=== PATIENT | male | born 1935 | race Caucasian/White ===

== ENCOUNTER 2018-01-16 06:59 | Emergency (ER) | payer MEDICARE ==
[~2018-01-16 06:59] MED LIST: AMIO100T4 PO; APIX5TAB PO; ASPI-555 PO; DOCU100C33 PO; KRIL1CAP2 PO; LEVO50 PO; MELA10TA2 PO; SAW/1TAB2 PO; SIMV10TA6 PO; TERA5CAP4 PO; VALS80TA30 PO
== END 2018-01-16 07:55 | disposition home or self-care (01) ==
LOC: EDH 06:59
DX: R04.0 Epistaxis (principal); I10 Essential (primary) hypertension; Z88.6 Allergy status to analgesic agent; Z88.8 Allergy status to other drugs, medicaments and biological substances
CPT/HCPCS: 99281

== ENCOUNTER → 2018-02-08 | Outpatient (CLI) | payer MEDICARE | END | disposition home or self-care (01) | LOC: RAH 12:57 | PROVIDERS: ATTEND Psychiatry & Neurology Neurology | DX: G91.2 (Idiopathic) normal pressure hydrocephalus (principal) | CPT/HCPCS: 70450 ==

== ENCOUNTER 2019-07-23 04:49 | Emergency (ER) | payer MEDICARE ==
[~2019-07-23 04:49] MED LIST changes: -AMIO100T4 PO; +AMIO200T6 PO; -APIX5TAB PO; -ASPI-555 PO; +ASPI-556 PO; +CARB1TAB20 PO; -DOCU100C33 PO; -KRIL1CAP2 PO; +LOSA50TA64 PO; -MELA10TA2 PO; +METO25TA6 PO; +POLY17PO4 PO; -SAW/1TAB2 PO; -SIMV10TA6 PO; +SIMV10TA97 PO; +TYLENOL PM PO; -VALS80TA30 PO; +VITA1TAB22 PO
[2019-07-23] MEDS ORDERED: ORPHENADRINE CITRATE 30 MG/ML ML ONE (06:02)
[2019-07-23] MEDS ORDERED: LIDOCAINE 5% TOPICAL PATCH TP ONE (06:02)
[2019-07-23] MEDS ORDERED: HYDROCODONE/ACETAMINOPHEN 5/325 MG TAB ONE (06:03)
== END 2019-07-23 07:34 | disposition home or self-care (01) ==
LOC: EDH 04:49
DX: M54.6 Pain in thoracic spine (principal); M62.838 Other muscle spasm; I10 Essential (primary) hypertension; Z88.6 Allergy status to analgesic agent; Z88.1 Allergy status to other antibiotic agents
CPT/HCPCS: 72072; 96372; 99283; J2360

== ENCOUNTER 2021-10-05 09:46 | Emergency (ER) | payer MEDICARE ==
[~2021-10-05] VITALS: Ht 180.3 cm; Wt 68.5 kg
[~2021-10-05 09:46] MED LIST changes: -AMIO200T6 PO; +AMIO200T68 PO; -CARB1TAB20 PO; +CARB1TAB35 PO
[2021-10-05 10:01] LABS: BASOPHILS % (AUTO) 0.3 % (0.0-5.0); EOSINOPHILS % (AUTO) 1.4 % (0.0-8.0); HEMATOCRIT 38.8 % (42-54); LYMPHOCYTES % (AUTO) 13.6 % (21.0-51.0); MEAN CORPUSCULAR HGB CONC 33.8 g/dL (32.0-36.0); MEAN CORPUSCULAR VOLUME 94.6 fL (79-99); MONOCYTES % (AUTO) 8.1 % (3.0-13.0); NEUTROPHILS % (AUTO) 76.3 % (40.0-77.0); PLATELET COUNT (AUTO) 188 K/uL (130-400); RED CELL DISTRIBUTION WIDTH 12.2 % (11.0-15.5)
[2021-10-05 10:07] LABS: CREATININE 1.3 mg/dL (0.5-1.5); POTASSIUM 4.1 mmol/L (3.5-5.1)
[2021-10-05 10:12] LABS: ALBUMIN 3.9 g/dL (3.5-5.0); TOTAL PROTEIN, SERUM 7.1 g/dL (6.0-8.3)
[2021-10-05] MEDS: ACETAMINOPHEN 500 MG TABLET PO ONE (10:23)
[2021-10-05] MEDS: ACETAMINOPHEN 500 MG TABLET ONE (10:23)
[2021-10-05 11:00] VITALS: BP 119/68
== END 2021-10-05 11:56 | disposition home or self-care (01) ==
LOC: EDH 09:46
DX: R55 Syncope and collapse (principal); R42 Dizziness and giddiness; I10 Essential (primary) hypertension; E78.00 Pure hypercholesterolemia, unspecified; G20 Parkinson's disease; Z88.5 Allergy status to narcotic agent; Z79.82 Long term (current) use of aspirin; Z95.810 Presence of automatic (implantable) cardiac defibrillator
CPT/HCPCS: 36415; 71045; 80053; 84484; 85025; 93005

== ENCOUNTER → 2023-02-12 | Outpatient (CLI) | payer MEDICARE ==
[2023-02-12 12:15] LABS: BASOPHILS # (AUTO) 0.03 K/uL (0.00-0.20); BASOPHILS % (AUTO) 0.3 % (0.0-5.0); EOSINOPHILS # (AUTO) 0.11 K/uL (0.00-0.70); EOSINOPHILS % (AUTO) 1.1 % (0.0-8.0); HEMATOCRIT 38.8 % (42-54); IMMATURE GRANULOCYTE ABSOLUTE 0.02 K/uL (0-1); LYMPHOCYTES # (AUTO) 1.6 K/uL (1.0-4.8); LYMPHOCYTES % (AUTO) 14.9 % (21.0-51.0); MEAN CORPUSCULAR HEMOGLOBIN 32.4 pg (27.0-33.0); MEAN CORPUSCULAR HGB CONC 33.2 g/dL (32.0-36.0); MEAN CORPUSCULAR VOLUME 97.5 fL (79-99); MONOCYTES # (AUTO) 0.9 K/uL (0.1-1.0); MONOCYTES % (AUTO) 8.8 % (3.0-13.0); NEUTROPHILS # (AUTO) 7.8 K/uL (1.8-7.7); NEUTROPHILS % (AUTO) 74.7 % (40.0-77.0); PLATELET COUNT (AUTO) 191 K/uL (130-400); RED BLOOD CELL COUNT(AUTO) 3.98 MIL/uL (4.50-6.20); RED CELL DISTRIBUTION WIDTH 12.3 % (11.0-15.5); WHITE BLOOD COUNT (AUTO) 10.4 K/uL (4.8-10.8)
== END | disposition home or self-care (01) ==
LOC: LAB 10:53
PROVIDERS: ATTEND Internal Medicine Cardiovascular Disease
DX: I10 Essential (primary) hypertension (principal)
CPT/HCPCS: 36415; 85025

== ENCOUNTER → 2023-04-16 | Outpatient (CLI) | payer MEDICARE | END | disposition home or self-care (01) | LOC: RAH 13:12 | PROVIDERS: ATTEND Internal Medicine | DX: R13.10 Dysphagia, unspecified (principal); R12 Heartburn | CPT/HCPCS: 74230; 92611 ==

== ENCOUNTER 2023-05-19 05:44 | Day surgery (SDC) | payer MEDICARE ==
[~2023-05-19] VITALS: Ht 177.8 cm; Wt 72.1 kg
[2023-05-19] VITALS (9 sets, daily range): BP systolic 142–176; BP diastolic 73–96; PULSE 62–80; RESP 16–20
[~2023-05-19 05:44] MED LIST changes: -AMIO200T68 PO; -ASPI-556 PO; -LEVO50 PO; -LOSA50TA64 PO; -POLY17PO4 PO; -SIMV10TA97 PO; -TYLENOL PM PO
[2023-05-19] MEDS ORDERED: OMEP20CA12 PO (06:14)
[2023-05-19] MEDS ORDERED: CHOL-4 PO (06:14)
[2023-05-19] MEDS ORDERED: ROPI0.2535 PO (06:15)
[2023-05-19] MEDS ORDERED: SOLI5TAB6 PO (06:15)
[2023-05-19] MEDS ORDERED: ATOR10 PO (06:18)
[2023-05-19] MEDS ORDERED: FAMO40TA7 PO (06:18)
[2023-05-19] MEDS ORDERED: APIX5TAB PO (06:18)
[2023-05-19] MEDS ORDERED: LEVO25CA4 PO (06:18)
[2023-05-19] MEDS ORDERED: LOSA25TA41 PO (06:18)
[2023-05-19] MEDS ORDERED: DUTA0.5C37 PO (06:18)
[2023-05-19] MEDS: 0.9%NACL 1000ML 1,000 ML IV ONE (06:54)
[2023-05-19] MEDS ORDERED: PHENYLEPHRINE HCL 10 MG/ML 1ML VIAL IV ONE (07:00)
[2023-05-19] MEDS ORDERED: LIDOCAINE HCL 400MG/20ML VIAL ONE (07:00)
[2023-05-19] MEDS ORDERED: PROPOFOL 10 MG/ML 20ML VIAL IV ONE (07:00)
[2023-05-19] MEDS: HYDRALAZINE 20MG/ML VIAL ONE (07:51)
== END 2023-05-19 08:26 | disposition home or self-care (01) ==
LOC: ENDO 05:44 → DAH 05:44 → ENDO 08:26
PROVIDERS: ATTEND Internal Medicine Gastroenterology
DX: R13.10 Dysphagia, unspecified (principal); R12 Heartburn; K29.50 Unspecified chronic gastritis without bleeding; K22.4 Dyskinesia of esophagus; K59.04 Chronic idiopathic constipation; I10 Essential (primary) hypertension; I25.10 Atherosclerotic heart disease of native coronary artery without angina pectoris; I48.91 Unspecified atrial fibrillation; E78.5 Hyperlipidemia, unspecified; E03.9 Hypothyroidism, unspecified; G20.A1 Parkinson's disease without dyskinesia, without mention of fluctuations; Z95.0 Presence of cardiac pacemaker; Z79.890 Hormone replacement therapy; Z79.01 Long term (current) use of anticoagulants; Z95.5 Presence of coronary angioplasty implant and graft; Z90.49 Acquired absence of other specified parts of digestive tract; Z98.890 Other specified postprocedural states; Z79.899 Other long term (current) drug therapy
CPT/HCPCS: 43239; 43248; J3490; J7030 ×2; J0360; J2704; J2371; A4620; A4215; A4223; A4657; A7002; A4222; A4221; A4663; A4606

== ENCOUNTER 2024-01-10 13:06 | Emergency (ER) | payer MEDICARE ==
[~2024-01-10] VITALS: Ht 177.8 cm; Wt 73.9 kg
[~2024-01-10 13:06] MED LIST changes: +APIX5TAB PO; +ATOR10 PO; +LEVO25CA4 PO; +OMEP20CA12 PO; +ROPI0.2535 PO; -VITA1TAB22 PO
[2024-01-10 13:11] VITALS: BP 147/82; PULSE 72; RESP 16; TEMP 98.3
--- NOTE | 2024-01-10 13:47 | HMCIMG ---
Exam: NONCONTRAST CT BRAIN REASON: FALL. COMPARISON: None. TECHNIQUE: Images are obtained from vertex to the skull base. The exam was performed without IV contrast. FINDINGS: There are generous ventricles and sulci. There is decreased attenuation in the deep central white matter. These findings are consistent with atrophy. There are no acute appearing focal parenchymal lesions. There is no evidence of mass, intracranial hemorrhage or acute stroke. Posterior fossa and brainstem structures appear unremarkable. There are no abnormal fluid collections. Extra cranial soft tissues appear unremarkable as well. IMPRESSION: 1. Atrophy, no acute finding. CT was performed with one or more following dose reduction techniques: automated exposure control, adjustment of the mA and kv according to patient's size, or use of a iterative reconstruction technique.
--- NOTE | 2024-01-10 14:13 | HMCIMG ---
THORACIC SPINE 2VWS REASON: FALL COMPARISON: None. TECHNIQUE: 3 images were obtained. FINDINGS: There are normal appearing vertebral bodies. Interspace heights are well preserved. There are no visible fractures. Soft tissues appear unremarkable. IMPRESSION: 1. Normal views of the thoracic spine.
--- NOTE | 2024-01-10 14:13 | HMCIMG ---
Exam: CERVICAL SPINE 2 VIEWS REASON: fall TECHNIQUE: 2 views were obtained. FINDINGS: There is severe degenerative narrowing at C5-6 and C6-7 with moderate narrowing at C3-4 and L4-5. There is reversal of the normal cervical curvature. There are no visible fractures. Soft tissues appear unremarkable. There are minimal degenerative changes in the facets. IMPRESSION: 1. Severe degenerative disc disease. 2. No acute finding.
[2024-01-10] MEDS ORDERED: CEPH500B PO (15:07)
[2024-01-10] MEDS ORDERED: ACET-66 PO (15:07)
--- NOTE | 2024-01-10 15:08 | ERN ---
General Chief Complaint: Head Injury Stated Complaint: HEAD INJURY Time Seen by MD: 13:09 Source: patient History of Present Illness Initial Comments PATIENT IS AN 88-YEAR-OLD MALE COMING IN TO BE EVALUATED AFTER HE HAD A SLIP AND FALL. HE STATES HE FELL DOWN AND HIT HIMSELF IN THE OCCIPITAL REGION OF HIS HEAD. HE HAS BLEEDING FROM THE OCCIPITAL REGION. NO LOSS OF CONSCIOUSNESS. Allergies: Coded Allergies: codeine (Unverified Allergy, Unknown, 03/13/19) meperidine (Verified Allergy, Unknown, 11/15/15) Home Meds Reported Medications Atorvastatin Calcium (LIPITOR) 10 Mg Tab, 10 MG PO HS, TAB 05/19/23 Apixaban (Eliquis) 5 Mg Tablet, 5 MG PO BID, TAB 05/19/23 Levothyroxine Sodium (Levothyroxine) 25 Mcg Capsule, 25 MCG PO AM, CAP 05/19/23 Ropinirole HCl (Ropinirole HCl) 0.25 Mg Tablet, 0.25 MG PO 5X/DAY, TAB 05/19/23 Omeprazole (Omeprazole) 20 Mg Capsule.dr, 20 MG PO DAILY, CAP 05/19/23 Carbidopa/Levodopa (Carbidopa-Levodopa 25-100 Tab) 1 Each Tablet, 2 TAB PO TID, TAB 03/13/19 Metoprolol Tartrate (Metoprolol Tartrate) 25 Mg Tablet, 25 MG PO BID, TAB 03/13/19 Terazosin HCl (Terazosin HCl) 5 Mg Capsule, 5 MG PO HS, CAP 09/12/17 Past Medical History Past Medical History: High Cholesterol, Heart Disease, Hypertension, Other Medical History Other: PARKINSONS Past Surgical History: Pacer/AICD Surgical History Other: HERNIA ROS Dictation CONSTITUTIONAL: NO CHILLS, NO FEVER, NO WEAKNESS, NO DIAPHORESIS, NO MALAISE. HEAD/FACE: NO SIGNS OF TRAUMA. EENT: NO EYE PAIN, NO BLURRED VISION, NO TEARING, NO DOUBLE VISION, NO EAR PAIN, NO EAR DISCHARGE, NO NOSE PAIN, NO NASAL CONGESTION, NO THROAT PAIN, NO THROAT SWELLING, NO MOUTH PAIN. RESPIRATORY: NO COUGH, NO ORTHOPNEA, NO SOB, NO STRIDOR, NO WHEEZING. CARDIOVASCULAR: NO CHEST PAIN, NO EDEMA, NO PALPITATIONS, NO SYNCOPE. GASTROINTESTINAL/ABDOMINAL: NO ABDOMINAL PAIN, NO CONSTIPATION, NO DIARRHEA, NO NAUSEA, NO VOMITING. GENITOURINARY: NO ABNORMAL DISCHARGE, NO DYSURIA, NO FREQUENT URINATION, NO HEMATURIA. NO COMPLAINTS OF PAIN IN THE GENITALS. MUSCULOSKELETAL: NO BACK PAIN, NO GOUT, NO JOINT PAIN, NO JOINT SWELLING, NO MUSCLE PAIN, NO MUSCLE STIFFNESS, NO NECK PAIN. INTEGUMENTARY: NO CHANGE IN COLOR, OCCIPITAL LACERATION 4 CM NEUROLOGICAL/PSYCH: NO ANXIETY, NOT DEPRESSED, NO EMOTIONAL PROBLEM, NO HEADACHE, NO NUMBNESS, NO PRE-EXISTING DEFICIT, NO HISTORY OF SEIZURES, NO TREMORS, NO WEAKNESS. HEMATOLOGIC/LYMPHATIC: NOT ANEMIC, NO HISTORY OF BLOOD CLOTS, NO APPARENT BLEEDING, NO BRUISING, GLANDS NOT SWOLLEN. ALL SYSTEMS NEGATIVE, EXCEPT NOTED. Physical Exam Physical Exam Dictation VITAL SIGNS: REVIEWED. GENERAL APPEARANCE: ALERT, ORIENTED X3, NO ACUTE DISTRESS, OBESE. HEAD AND FACE: NON-TRAUMATIC. EYES: PERRL, PINK CONJUNCTIVAS, EYELID NO TRAUMA, ANTERIOR CHAMBER CLEAR. EARS: PINNAS INTACT AND NO SIGNS OF TRAUMA OR ERYTHEMA. EAR CANALS CLEAR AND NO DISCHARGE. TMS NO ERYTHEMA. NOSE: NO DISCHARGE, NO BLEEDING. OROPHARYNX: MOUTH NORMAL, TEETH NO CARIES, TONGUE PINK. PHARYNX CLEAR, NO ERYTHEMA. TONSILS NO EXUDATES, NO ABSCESSES NOTED. MUCOUS MEMBRANE MOIST. NECK: SUPPLE, NON-TENDER, NO THYROMEGALY, NO MASSES, NO JVD, NO BRUITS. BREAST: DEFERRED. CHEST: NO TENDERNESS, NO CREPITUS, NO PARADOXICAL MOVEMENT, NO RETRACTIONS. LUNGS: CLEAR, WELL-VENTILATED, SYMMETRIC, NO RALES, NO WHEEZING, NO RHONCHI, NO STRIDOR, GOOD BREATH SOUNDS BILATERALLY. HEART: REGULAR RATE, REGULAR RHYTHM, NO MURMUR, NO GALLOPS. VASCULAR: NO PERIPHERAL EDEMA. ABDOMEN: SOFT, POSITIVE BOWEL SOUNDS, NONDISTENDED, NO GUARDING, NONTENDER, NO REBOUND, NO MASSES NO HEPATOMEGALY, NO SPLENOMEGALY, NO THOMAS'S SIGN, NO HERNIAS. RECTAL: DEFERRED. GENITAL: DEFERRED. NEUROLOGICAL: NORMAL SPEECH, GROSS MOTOR FUNCTION INTACT, GROSS SENSORY FUNCTION INTACT. MUSCULOSKELETAL: NECK NONTENDER, FULL RANGE OF MOTION, BACK NONTENDER, FULL RANGE OF MOTION. EXTREMITIES: NONTENDER, FULL RANGE OF MOTION. SKIN: COLOR PINK, DRY, NO TURGOR, NO RASH, OCCIPITAL LACERATION 4 CM LENGTH LINEAR LYMPHATICS: DEFERRED. IVF Sepsis Management IVF Sepsis Management BMI >30kg/m2?: Yes Results Laboratory and Microbiology Labs Reviewed?: Yes EKG/XRAY/US/CT/MRI X-RAY Comment [place] [id number] IMAGING REPORT Signed PATIENT: TITI MARCANO JR MR#: [id number] : 1935 SEX: M AGE: 88 LOCATION: ED ORDER 31 STATUS: REG ER REPORT#: [id number] SERVICE 31 REASON: fall ORDERING PHYSICIAN: AMIEE MADRID MD PROCEDURE: CERV 2 3VW - CERV SPINE 2-3VWS Exam: CERVICAL SPINE 2 VIEWS REASON: fall TECHNIQUE: 2 views were obtained. FINDINGS: There is severe degenerative narrowing at C5-6 and C6-7 with moderate narrowing at C3-4 and L4-5. There is reversal of the normal cervical curvature. There are no visible fractures. Soft tissues appear unremarkable. There are minimal degenerative changes in the facets. IMPRESSION: 1. Severe degenerative disc disease. 2. No acute finding. DICTATED BY: ROBERTO CARLOS UMANA MD DATE: 01/10/241409 ELECTRONICALLY SIGNED BY: ROBERTO CARLOS UMANA MD DATE: 01/10/241412 [address] [address] IMAGING REPORT Signed PATIENT: TITI MARCANO JR MR#: [id number] : 1935 SEX: M AGE: 88 LOCATION: ED ORDER 23 STATUS: REG [facility] REPORT#: [id number] SERVICE 22 REASON: FALL ORDERING PHYSICIAN: AIMEE MADRID MD PROCEDURE: THOR 2VW - THORACIC SPINE 2VWS THORACIC SPINE 2VWS REASON: FALL COMPARISON: None. TECHNIQUE: 3 images were obtained. FINDINGS: There are normal appearing vertebral bodies. Interspace heights are well preserved. There are no visible fractures. Soft tissues appear unremarkable. IMPRESSION: 1. Normal views of the thoracic spine. DICTATED BY: ROBERTO CARLOS UMANA MD DATE: 01/10/241410 ELECTRONICALLY SIGNED BY: ROBERTO CARLOS UMANA MD DATE: 01/10/[address] Scan Comment [place] [address] [id number] IMAGING REPORT Signed PATIENT: TITI MARCANO JR MR#: [id number] : 1935 SEX: M AGE: 88 LOCATION: EDH ORDER 1322 STATUS: REG [facility] REPORT#: [id number] SERVICE 132 REASON: FALL ORDERING PHYSICIAN: AIMEE MADRID MD PROCEDURE: HEAD WO - CT HEAD/BRAIN W/O CONTRAST Exam: NONCONTRAST CT BRAIN REASON: FALL. COMPARISON: None. TECHNIQUE: Images are obtained from vertex to the skull base. The exam was performed without IV contrast. FINDINGS: There are generous ventricles and sulci. There is decreased attenuation in the deep central white matter. These findings are consistent with atrophy. There are no acute appearing focal parenchymal lesions. There is no evidence of mass, intracranial hemorrhage or acute stroke. Posterior fossa and brainstem structures appear unremarkable. There are no abnormal fluid collections. Extra cranial soft tissues appear unremarkable as well. IMPRESSION: 1. Atrophy, no acute finding. CT was performed with one or more following dose reduction techniques: automated exposure control, adjustment of the mA and kv according to patient's size, or use of a iterative reconstruction technique. DICTATED BY: ROBERTO CARLOS UMANA MD DATE: 01/10/24 134 ELECTRONICALLY SIGNED BY: ROBERTO CARLOS UMANA MD DATE: 01/10/24 134 [facility] MDM: DIFFERENTIAL DIAGNOSIS: FALL, LACERATION SCALP, PATIENT IS A AN 88-YEAR-OLD MALE COMING IN TO BE EVALUATED FOR FALL WITH THE LESION. EVALUATION THERE IS A LACERATION 4 CM IN LENGTH. LACERATION WAS REPAIRED USING MARITZA. PATIENT TOLERATED PROCEDURE WELL. PATIENT WILL BE DISCHARGED IN STABLE CONDITION WITH A DIAGNOSIS OF FALL WITH SCALP LACERATION ED Course Orders Procedure Category Date Status Time Ct Head/Brain W/O CT 01/10/24 Resulted Contrast 13:21 Thoracic Spine 2vws RAD 01/10/24 Resulted 13:23 Cerv Spine 2-3vws RAD 01/10/24 Resulted 13:32 Vital Signs Date Time Temp Pulse Resp B/P (MAP) Pulse Ox O2 Delivery O2 Flow Rate FiO2 01/10/24 13:11 98.2 72 16 147/82 96 Room Air 0 Laceration/Wound Repair Laceration/Wound Repair : Wound Location: head Wound Length (cm): 4 Wound's Depth, Shape: superficial Wound Explored: clean Irrigated w/ Saline (ccs): 100 Betadine Prep?: Yes Wound Debrided: minimal Wound Repaired With: maritza Number of Sutures: 6 Layer Closure?: Yes DX & DISP Disposition: Discharge Departure Impression: Primary Impression: Fall Additional Impression: Scalp laceration Condition: Stable Scripts Acetaminophen (Tylenol) 500 Mg Tab 1 TAB PO Q6HPRN PRN for pain or fever for 5 Days, #30 TAB 0 Refills Prov: AIMEE MADRID MD 01/10/24 Cephalexin Monohydrate (Keflex) 500 Mg Cap 1 CAP PO TID for 10 Days, #30 CAP 0 Refills Prov: AIMEE MADRID MD 01/10/24 Additional Instructions: FOLLOW-UP WITH PRIMARY CARE PROVIDER IN 1 TO 2 DAYS. TAKE MEDICATIONS DIRECTED HERE IN THE EMERGENCY ROOM. OKAY TO CONTINUE HOME MEDICATIONS UNLESS OTHERWISE DISCUSSED DURING YOUR VISIT IN THE EMERGENCY ROOM TODAY. RETURN TO YOUR NEAREST EMERGENCY ROOM IF SYMPTOMS WORSEN OR IF THERE IS NO IMPROVEMENT. CALL 911 IF YOU NEED IMMEDIATE ASSISTANCE. TAKE TYLENOL [id number] NEEDED AND IF NO CONTRAINDICATIONS ARE PRESENT. INCREASE ORAL HYDRATION. A WOUND CULTURE OR URINE CULTURE WAS ORDERED HERE IN THE EMERGENCY ROOM DEPARTMENT PLEASE FOLLOW-UP WITH PRIMARY CARE PROVIDER AND ADVISE THEM TO GET REPEAT PORTS FROM OUR FACILITY. IF YOU HAD ANY KELSIE WRAP/SPLINTS THAT WERE APPLIED HERE, PLEASE DO NOT REMOVE THEM UNTIL YOU SEE YOUR PRIMARY CARE OR SPECIALTY. REFERRALS: Referrals: RACHEL HOLLINS MD (PCP) Time of Disposition: 15:06 AIMEE MADRID MD Jan 10, 2024 15:08
[2024-01-10] MEDS: traMADol HCL 50 MG TABLET PO ONE (15:58)
== END 2024-01-10 16:00 | disposition home or self-care (01) ==
LOC: EDH 13:06
DX: S01.01XA Laceration without foreign body of scalp, initial encounter (principal); E78.00 Pure hypercholesterolemia, unspecified; I10 Essential (primary) hypertension; Z79.01 Long term (current) use of anticoagulants; Z79.899 Other long term (current) drug therapy; Z88.5 Allergy status to narcotic agent; Z95.810 Presence of automatic (implantable) cardiac defibrillator; W01.10XA Fall on same level from slipping, tripping and stumbling with subsequent striking against unspecified object, initial encounter; Y93.89 Activity, other specified; Y92.89 Other specified places as the place of occurrence of the external cause; Y99.8 Other external cause status
CPT/HCPCS: 12002; 70450; 72040; 72070; 99284

== ENCOUNTER → 2024-08-14 | Outpatient (CLI) | payer MEDICARE ==
[~2024-08-14] MED LIST changes: +ACET-2123 PO; +ACET-66 PO; -CARB1TAB35 PO; +CARB1TAB41 PO; +CEPH500B PO; -LEVO25CA4 PO; +LEVO25TA54 PO
--- NOTE | 2024-08-14 15:25 | EKG ---
[facility] Test Date: 2024-08-14 Test Time: 13:59:56 Pat Name: TITI MARCANO Department: [facility] Room: Gender: M X Ray Tech: [id number] : 1935 Requested By: SINGH MARIA Order Number: [id number] Reading MD: Kendrick Sumner Measurements Intervals [place] Rate: 80 P: -53 ID: [id number] QRS: -47 QRSD: 132 T: 54 QT: 423 QTc: 489 Interpretive Statements Sinus or ectopic atrial rhythm Prolonged ID interval Left bundle branch block Compared to ECG 01/19/2024 15:02:44 Ectopic atrial rhythm now present First degree AV block now present Left bundle-branch block now present Atrial fibrillation no longer present Ventricular premature complex(es) no longer present Left ventricular hypertrophy no longer present Early repolarization no longer present Myocardial infarct finding no longer present Electronically Signed On 08-16-2024 10:18:48 CDT by Kendrick Sumner Please click the below link to view image of tracing.
== END | disposition home or self-care (01) ==
LOC: RAH 13:42
PROVIDERS: ATTEND Psychiatry & Neurology Neurology
DX: I44.7 Left bundle-branch block, unspecified (principal); G20.A1 Parkinson's disease without dyskinesia, without mention of fluctuations; F06.8 Other specified mental disorders due to known physiological condition
CPT/HCPCS: 93005

== ENCOUNTER 2024-09-22 09:29 | Observation (INO) | payer MEDICARE ==
[~2024-09-22] VITALS: Ht 180.3 cm; Wt 75.8 kg
[2024-09-22 09:49] LABS: IMMATURE GRANULOCYTE ABSOLUTE 0.05 K/uL (0-1); NUCLEATED RED BLOOD CELLS 0.0 % (0.0-0.19); PLATELET COUNT (AUTO) 198 K/uL (130-400); RED BLOOD CELL COUNT(AUTO) 4.42 MIL/uL (4.50-6.20); RED CELL DISTRIBUTION WIDTH 13.0 % (11.0-15.5); WHITE BLOOD COUNT (AUTO) 9.8 K/uL (4.8-10.8)
[2024-09-22 09:58] LABS: CREATININE 1.2 mg/dL (0.5-1.3); GLOMERULAR FILTR. RATE CALC 58.0 mL/min (>90); GLUCOSE,RANDOM 96.0 mg/dL (70-105); SODIUM SERUM 138.0 mmol/L (136-145); UREA NITROGEN, BLOOD 24.0 mg/dL (7-18)
[2024-09-22 10:03] LABS: CREATINE KINASE, TOTAL 118.0 U/L (21-232)
--- NOTE | 2024-09-22 10:15 | HMCIMG ---
EXAM: CR Chest, 1 View. CLINICAL HISTORY: cp COMPARISON: Radiograph dated January 19, 2024 FINDINGS: LUNGS: There is no mass, infiltrate, or acute pulmonary abnormality. Mild bibasilar atelectasis. PLEURAL SPACES: No evidence of pleural effusion or pneumothorax. MEDIASTINUM: AICD leads overlie the right atrium and right ventricle. Cardiac size and mediastinal contours within normal limits. BONES: No acute osseous abnormality. IMPRESSION: 1. No acute cardiopulmonary findings. /[place]
--- NOTE | 2024-09-22 10:38 | ERN ---
General Chief Complaint: Chest Pain Stated Complaint: CP Time Seen by MD: 09:29 Source: patient History of Present Illness Initial Comments Patient is a 89-year-old male coming in complaining of chest discomfort. Per EMS patient has been having chest discomfort earlier today upon evaluation in triage she states that in his chest discomfort is gone. Vital signs within normal limits. Patient does has a history of dementia. Allergies: Coded Allergies: codeine (Unverified Allergy, Unknown, 03/13/19) meperidine (Verified Allergy, Unknown, 11/15/15) Home Meds Active Scripts Acetaminophen (Tylenol) 500 Mg Tab, 1 TAB PO Q6HPRN PRN for pain or fever for 5 Days, #30 TAB 0 Refills Prov:AIMEE MADRID MD 01/10/24 Cephalexin Monohydrate (Keflex) 500 Mg Cap, 1 CAP PO TID for 10 Days, #30 CAP 0 Refills Prov:AIMEE MADRID MD 01/10/24 Reported Medications Terazosin HCl (Terazosin HCl) 5 Mg Capsule, 1 CAP PO HS for 30 Days, #30 CAP 0 Refills 01/19/24 Metoprolol Tartrate (Metoprolol Tartrate) 25 Mg Tablet, 1 TAB PO BID for 30 Days, #60 TAB 0 Refills 01/19/24 Carbidopa/Levodopa (Carbidopa-Levo ER 25-100 Tab) 25 Mg-100 Mg Tablet.er, 1 TAB PO TID for 30 Days, #60 TAB 0 Refills 01/19/24 Ropinirole HCl (Ropinirole HCl) 0.25 Mg Tablet, 0.25 MG PO 5XDAY, TAB 01/19/24 Omeprazole (Omeprazole) 20 Mg Capsule.dr, 1 CAP PO DAILY for 30 Days, #30 CAP 0 Refills 01/19/24 Levothyroxine Sodium (Levothyroxine Sodium) 25 Mcg Tablet, 25 TAB PO DAILY for 30 Days, #30 TAB 0 Refills 01/19/24 Atorvastatin Calcium (LIPITOR) 10 Mg Tab, 1 TAB PO HS for 30 Days, #30 TAB 0 R efills 01/19/24 Apixaban (Eliquis) 5 Mg Tablet, 1 TAB PO BID for 30 Days, #60 TAB 0 Refills 01/19/24 Acetaminophen (Acetaminophen Extra Strength) 500 Mg Tablet, 1-2 TAB PO Q6HPRN PRN for pain for 1 Day, #20 TAB 0 Refills 01/19/24 Past Medical History Past Medical History: A-Fib, Dementia, Hypertension, Other Medical History Other: PARKINSONS Past Surgical History: Appendectomy, Pacer/AICD Surgical History Other: STENTS ROS Dictation CONSTITUTIONAL: No chills, no fever, no weakness, no diaphoresis, no malaise. HEAD/FACE: No signs of trauma. EENT: No eye pain, no blurred vision, no tearing, no double vision, no ear pain, no ear discharge, no nose pain, no nasal congestion, no throat pain, no throat swelling, no mouth pain. RESPIRATORY: No cough, no orthopnea, no SOB, no stridor, no wheezing. CARDIOVASCULAR: chest pain, no edema, no palpitations, no syncope. GASTROINTESTINAL/ABDOMINAL: No abdominal pain, no constipation, no diarrhea, no nausea, no vomiting. GENITOURINARY: No abnormal discharge, no dysuria, no frequent urination, no hematuria. No complaints of pain in the genitals. MUSCULOSKELETAL: No back pain, no gout, no joint pain, no joint swelling, no muscle pain, no muscle stiffness, no neck pain. INTEGUMENTARY: No change in color, no change in hair/nails, no dryness, no lesion, no lumps, no rash. NEUROLOGICAL/PSYCH: No anxiety, not depressed, no emotional problem, no headache, no numbness, no pre-existing deficit, no history of seizures, no tremors, no weakness. HEMATOLOGIC/LYMPHATIC: Not anemic, no history of blood clots, no apparent bleeding, no bruising, glands not swollen. All Systems Negative, Except as Noted. Physical Exam Physical Exam Dictation VITAL SIGNS: Reviewed. GENERAL APPEARANCE: Alert, oriented x3, no acute distress, obese. HEAD AND FACE: Non-traumatic. EYES: PERRL, pink conjunctivas, eyelid no trauma, anterior chamber clear. EARS: Pinnas intact and no signs of trauma or erythema. Ear canals clear and no discharge. TMs no erythema. NOSE: No discharge, no bleeding. OROPHARYNX: Mouth normal, teeth no caries, tongue pink. Pharynx clear, no erythema. Tonsils no exudates, no abscesses noted. Mucous membrane moist. NECK: Supple, non-tender, no thyromegaly, no masses, no JVD, no bruits. BREAST: Deferred. CHEST: No tenderness, no crepitus, no paradoxical movement, no retractions. LUNGS: Clear, well-ventilated, symmetric, no rales, no wheezing, no rhonchi, no stridor, good breath sounds bilaterally. HEART: Regular rate, regular rhythm, no murmur, no gallops. VASCULAR: No peripheral edema. ABDOMEN: Soft, positive bowel sounds, nondistended, no guarding, nontender, no rebound, no masses no hepatomegaly, no splenomegaly, no Campos's sign, no hernias. RECTAL: Deferred. GENITAL: Deferred. NEUROLOGICAL: Normal speech, gross motor function intact, gross sensory func tion intact. MUSCULOSKELETAL: Neck nontender, full range of motion, back nontender, full range of motion. EXTREMITIES: Nontender, full range of motion. SKIN: Color pink, dry, no turgor, no rash, no lacerations, no abrasions, no contusions. LYMPHATICS: Deferred. Results Laboratory and Microbiology Lab and Micro Result Laboratory Tests Test 09/22/24 09:41 09/22/24 10:06 White Blood Count 9.8 K/uL (4.8-10.8) Red Blood Count 4.42 MIL/uL (4.50-6.20) L Hemoglobin 14.0 g/dL (14.0-18.0) Hematocrit 42.1 % (42-54) Mean Corpuscular Volume 95.2 fL (79-99) Mean Corpuscular Hemoglobin 31.7 pg (27.0-33.0) Mean Corpuscular Hemoglobin Concent 33.3 g/dL (32.0-36.0) Red Cell Distribution Width 13.0 % (11.0-15.5) Platelet Count 198 K/uL (130-400) Mean Platelet Volume 9.4 fL (7.5-10.5) Immature Granulocyte % (Auto) 0.5 % (0-1) Neutrophils (%) (Auto) 74.1 % (40.0-77.0) Lymphocytes (%) (Auto) 13.5 % (21.0-51.0) L Monocytes (%) (Auto) 9.3 % (3.0-13.0) Eosinophils (%) (Auto) 2.1 % (0.0-8.0) Basophils (%) (Auto) 0.5 % (0.0-5.0) Neutrophils # (Auto) 7.2 K/uL (1.8-7.7) Lymphocytes # (Auto) 1.3 K/uL (1.0-4.8) Monocytes # (Auto) 0.9 K/uL (0.1-1.0) Eosinophils # (Auto) 0.21 K/uL (0.00-0.70) Basophils # (Auto) 0.05 K/uL (0.00-0.20) Absolute Immature Granulocyte (auto 0.05 K/uL (0-1) Nucleated Red Blood Cells 0.0 % (0.0-0.19) Sodium Level 138 mmol/L (136-145) Potassium Level 4.6 mmol/L (3.5-5.1) Chloride Level 103 mmol/L (101-111) Carbon Dioxide Level 28 mmol/L (21-32) Blood Urea Nitrogen 24 mg/dL (7-18) H Creatinine 1.2 mg/dL (0.5-1.3) Glomerular Filtration Rate Calc 58 mL/min (>90) Random Glucose 96 mg/dL (70-105) Total Calcium 9.2 mg/dL (8.5-10.1) Magnesium Level 1.90 mg/dL (1.80-2.40) Total Creatine Kinase 118 U/L (21-232) Troponin I High Sensitivity 16 ng/L (4-75) B-Type Natriuretic Peptide 118 pg/mL (0-100) H Urine Color LIGHT-YELLOW (YELLOW) Urine Appearance CLEAR (CLEAR) Urine pH 6.5 (5.0-8.0) Urine Specific [place] 1.008 (1.001-1.031) Urine Protein NEGATIVE mg/dL (NEGATIVE) Urine Glucose (UA) NEGATIVE mg/dL (NEGATIVE) Urine Ketones NEGATIVE mg/dL (NEGATIVE) Urine Occult Blood LARGE (NEGATIVE) H Urine Nitrate NEGATIVE (NEGATIVE) Urine Bilirubin NEGATIVE mg/dL (NEGATIVE) Urine Urobilinogen 0.2 mg/dL (0.2-1.0) Urine Leukocyte Esterase NEGATIVE [place]/uL Urine RBC 51-100 /HPF (0-1) H Urine WBC 0-1 /HPF (0-1) Urine Bacteria None /HPF (None Seen) Labs Reviewed?: Yes EKG/XRAY/US/CT/MRI EKG Comment 09/22/2024 time 9:33 a.m. Ventricular rate [address] wave elevation or depression X-RAY Comment [address] [place] [address] IMAGING REPORT Signed PATIENT: TITI MARCANO JR MR#: [id number] : 1935 SEX: M AGE: 89 LOCATION: EDH ORDER STATUS: REG ER REPORT#: [id number] SERVICE REASON: cp ORDERING PHYSICIAN: AIMEE MADRID MD PROCEDURE: CXR1VW - CHEST 1VW EXAM: CR Chest, 1 View. CLINICAL HISTORY: cp COMPARISON: Radiograph dated January 19, 2024 FINDINGS: LUNGS: There is no mass, infiltrate, or acute pulmonary abnormality. Mild bibasilar atelectasis. PLEURAL SPACES: No evidence of pleural effusion or pneumothorax. MEDIASTINUM: AICD leads overlie the right atrium and right ventricle. Cardiac size and mediastinal contours within normal limits. BONES: No acute osseous abnormality. IMPRESSION: 1. No acute cardiopulmonary findings. /[place] DICTATED BY: EDGARDO LOCK Jr., MD DATE: 09/22/241113 ELECTRONICALLY SIGNED BY: EDGARDO LOCK Jr., MD DATE: 09/22/241113 [facility] MDM: Differential diagnosis: Chest pain, history of stent placement, history of CAD, Rationale: Tests considered and ordered secondary to shared decision making include: Previous outside records reviewed: Old ER visits. Risk of complication and/or morbidity or mortality of patient management: None Medications-Per medication reconciliation Need for hospitalization: Patient does meet criteria for hospitalization. Need for emergency major/minor surgery: No There are no social concerns with this patient. Prescription drug management Prescriptions will include symptomatic care Patient's prior external medical records from other ER visits were reviewed by me as indicated. Prior testing and results from previous visits were reviewed. Prior tests were taken into account with medical decision making and resource utilization, independent historian/historians were used to obtain complete medical history. I independently interpreted the test that were performed, results were reviewed by me and considered findings on radiology if ordered. Medical management and examination interpretation discussions were had by me with other qualified healthcare professionals as indicated for the patient's care. Patient is a an 89-year-old gentleman coming in complaining of chest pain. Upon evaluation in triage patient states that his chest pain had resolved. Speaking to his she states that the patient became diaphoretic earlier today when he was complaining of chest pain. Because he has a extensive history of CAD with stent placement a years ago and has not never felt this severe before patient will be admitted under the care of hospitalist group for ongoing management and further evaluation. Dr. Murphy is patient's l tacker ED Course Orders Procedure Category Date Status Time Cbc With Differential LAB 09/22/24 Complete 09:35 Chest 1vw RAD 09/22/24 Resulted 09:35 12 Lead Ekg Tracing- EKG 09/22/24 Complete Technical 09:35 Magnesium LAB 09/22/24 Complete 09:35 Creatine Kinase, Total LAB 09/22/24 Complete 09:35 Troponin I High LAB 09/22/24 Complete Sensitivity 09:35 Urinalysis Profile LAB 09/22/24 Complete 09:35 Basic Metabolic Panel LAB 09/22/24 Complete 09:35 B-Type Natriuretic LAB 09/22/24 Complete Peptide 09:35 Troponin I High LAB 09/22/24 In Process Sensitivity 11:02 Vital Signs Date Time Temp Pulse Resp B/P (MAP) Pulse Ox O2 Delivery O2 Flow Rate FiO2 09/22/24 10:50 98.2 71 22 144/98 98 Room Air* 0 21 09/22/24 09:50 98.2 76 20 123/88 95 Room Air* 0 21 09/22/24 09:29 77 17 155/79 95 Room Air 0 DX & DISP Disposition: Inpatient Decision to Admit Time: 11:26 Departure Impression: Primary Impression: Chest pain Condition: Stable Referrals: RACHEL HOLLINS MD (PCP) AIMEE MADRID MD Sep 22, 2024 10:38
--- NOTE | 2024-09-22 10:47 | EKG ---
[facility] Test Date: 2024-09-22 Test Time: 09:33:16 Pat Name: TITI MARCANO Department: ED Room: 332 Gender: M Seo Analyst: [id number] : 1935 Requested By: AIMEE MADRID Order Number: [id number] Reading MD: Edison Titus Measurements Intervals [place] Rate: 66 P: -21 [place]: 261 QRS: -49 QRSD: 130 T: -30 QT: 422 QTc: 444 Interpretive Statements Sinus rhythm Prolonged [place] interval Left bundle branch block Compared to ECG 08/14/2024 13:59:56 Ectopic atrial rhythm no longer present Electronically Signed On 09-24-2024 23:57:51 CDT by Edison Titus Please click the below link to view image of tracing.
[2024-09-22 10:54] LABS: APPEARANCE,URINE CLEAR (CLEAR); GLUCOSE, URINE (UA) NEGATIVE (NEGATIVE); LEUKOCYTE ESTERASE ,URINE NEGATIVE Leu/uL (NEGATIVE); NITRATE,URINE NEGATIVE (NEGATIVE); OCCULT BLOOD,URINE LARGE (NEGATIVE)
[2024-09-22 10:55] LABS: ADD UA MICROSCOPIC YES
[2024-09-22 12:00] VITALS: BP 148/90; PULSE 69; RESP 21; TEMP 98.5
[2024-09-22 12:21] LABS: PHOSPHORUS 2.6 mg/dL (2.5-4.9)
[2024-09-22 12:28] LABS: INR 1.05 (0.85-1.15)
[2024-09-22 12:30] VITALS: O2SAT 97
[2024-09-22] MEDS ORDERED: NITROGLYCERIN 0.4 MG SL TAB SL PRN (12:30)
--- NOTE | 2024-09-22 12:38 | HP ---
[facility] HISTORY [facility] PHYSICAL Date of Service: Sep 22, 2024 Time of Service: 12:11 HISTORY OF PRESENT ILLNESS: This is an 89-year-old male with past medical history of CAD, hypertension, hyperlipidemia, urinary incontinence, Parkinson's disease, BPH atrial fibri llation on Eliquis, pacemaker status who presents to the ED by EMS for complaints with episode of severe chest pain this morning. As per Aaliyah who was present during my evaluation patient had took a shower, had coffee and went to bed when the sharp pain started at 8:30 a.m. this morning. As per the patient, he had pain for 30 minutes and it was sharp in nature and constant and is not radiating. Patient does not have any aggravating or relieving factors and the pain went down spontaneously after [address] Murphy on outpatient for Cardiology. As per , patient had 2 stents placed 10 years ago. Patient uses a walker to ambulate. EKG shows [place] prolongation with sinus rhythm and heart rate of 66. Patient informed about taking his morning home medication. Seen and examined patient in the ED awake,alert and coherent,following commands and moving all extremities.Patient denies loss of consciousness,headache,visual disturbance,nausea,vomiting,chest pain,palpitation ,fever,chills,cough and shortness of breath. Vital signs temperature 98.2 heart rate 77, blood pressure 144/98, saturation 98% on room air. Labs: CBC unremarkable. BNP 118 troponin 16, BUN 24 creatinine 1.2, GFR 58, glucose 96. Urinalysis negative except for blood, nurse informed that it is due to traumatic cause. Chest x-ray result no acute pulmonary infiltrate is seen. We will admit patient for further evaluation for chest pain to rule out ACS. REVIEW OF SYSTEMS CONSTITUTIONAL: Denies fevers, chills, or night sweats. No unintentional weight loss reported. NEUROLOGICAL: Denies headache, amaurosis fugax, motor weakness, sensory deficit, vertigo/spinning sensation, gait abnormalities, or tremors. ENT: No otalgia, otorrhea, rhinitis, rhinorrhea, hoarseness, or sore throat. Mild hearing loss CARDIOVASCULAR: Denies any exertional angina, dyspnea on exertion, orthopnea, paroxysmal nocturnal dyspnea, palpitations, life-threatening arrhythmias, claudication. PULMONARY: Denies any shortness of breath, cough, phlegm/sputum, hemoptysis, pleuritic chest pain. GASTROINTESTINAL: Denies any type of dysphagia to either liquids or solids. Denies nausea, vomiting, pyrosis, early satiety, abdominal pain, diarrhea, constipation, or changes in stool consistency or caliber. Denies coffee-ground emesis, hematemesis, hematochezia, or melanotic stools. GENITOURINARY: Denies frequency, urgency, nocturia, hematuria or incontinence (Storage/Irritative symptoms.) Low urinary stream, straining to void, urinary intermittency or hesitancy, splitting of the voiding stream, terminal dribbling. HEMATOLOGIC: Denies thrombophilia/previous clots, or coagulopathy/bleeding disorders. DERMATOLOGIC: Admits to multiple rashes on face, arms PSYCHIATRIC: Denies any suicidal or homicidal ideation. Denies hallucinations. PAST MEDICAL HISTORY: CAD, Hypertension, hyperlipidemia, urinary incontinence Parkinson's disease, BPH, atrial fibrillation PAST SURGICAL HISTORY: 2 Stents placed 10 years ago , Pacemaker placement PAST SOCIAL HISTORY: Patient lives with . Patient denies alcohol tobacco and recreational drug use FAMILY HISTORY: [ ] Coded Allergies: codeine (Unverified Allergy, Unknown, 03/13/19) meperidine (Verified Allergy, Unknown, 11/15/15) PHYSICAL EXAM GENERAL APPEARANCE: The patient is awake, alert, and oriented, in no acute cardiopulmonary distress. There is psychomotor slowing NECK: Supple. No JVD. No thyromegaly. No submental, submandibular, pre- /postauricular, occipital or supraclavicular lymphadenopathy. CHEST: Normal chest expansion. No Telemetry. LUNGS: Absence of any rales, rhonchi or any wheezing. CARDIOVASCULAR: Regular. S1 and S2 normal. No appreciable rubs, murmurs or gallops. ABDOMEN: Soft, nontender, and nondistended. There is no rebound, voluntary guarding, or rigidity. : Deferred. No Bloom. EXTREMITIES: not cyanotic. No clubbing. Good capillary refill. Minimal pedal edema SKIN: No skin breakdown. Vital Sign (Last 24 Hours) 09/22/24 10:50 Temp 98.2 Pulse 71 Resp 22 B/P (MAP) 144/98 Pulse Ox 98 O2 Delivery Room Air* O2 Flow Rate 0 FiO2 21 LABS: Laboratory: Test 09/22/24 11:17 09/22/24 10:06 09/22/24 09:41 Range/Units Troponin I High Sensitivity 14 4-75 ng/L Urine Color LIGHT-YELLOW YELLOW Urine Appearance CLEAR CLEAR Urine pH 6.5 5.0-8.0 Urine Specific [place] 1.008 1.001-1.031 Urine Protein NEGATIVE NEGATIVE mg/dL Urine Glucose (UA) NEGATIVE NEGATIVE mg/dL Urine Ketones NEGATIVE NEGATIVE mg/dL Urine Occult Blood LARGE H NEGATIVE Urine Nitrate NEGATIVE NEGATIVE Urine Bilirubin NEGATIVE NEGATIVE mg/dL Urine Urobilinogen 0.2 0.2-1.0 mg/dL Urine Leukocyte Esterase NEGATIVE NEGATIVE Kana/uL Urine RBC 51-100 H 0-1 /HPF Urine WBC 0-1 0-1 /HPF Urine Bacteria None None Seen /HPF White Blood Count 9.8 4.8-10.8 K/uL Red Blood Count 4.42 L 4.50-6.20 MIL/uL Hemoglobin 14.0 14.0-18.0 g/dL Hematocrit 42.1 42-54 % Mean Corpuscular Volume 95.2 79-99 fL Mean Corpuscular Hemoglobin 31.7 27.0-33.0 pg Mean Corpuscular Hemoglobin Concent 33.3 32.0-36.0 g/dL Red Cell Distribution Width 13.0 11.0-15.5 % Platelet Count 198 130-400 K/uL Mean Platelet Volume 9.4 7.5-10.5 fL Immature Granulocyte % (Auto) 0.5 0-1 % Neutrophils (%) (Auto) 74.1 40.0-77.0 % Lymphocytes (%) (Auto) 13.5 L 21.0-51.0 % Monocytes (%) (Auto) 9.3 3.0-13.0 % Eosinophils (%) (Auto) 2.1 0.0-8.0 % Basophils (%) (Auto) 0.5 0.0-5.0 % Neutrophils # (Auto) 7.2 1.8-7.7 K/uL Lymphocytes # (Auto) 1.3 1.0-4.8 K/uL Monocytes # (Auto) 0.9 0.1-1.0 K/uL Eosinophils # (Auto) 0.21 0.00-0.70 K/uL Basophils # (Auto) 0.05 0.00-0.20 K/uL Absolute Immature Granulocyte (auto 0.05 0-1 K/uL Nucleated Red Blood Cells 0.0 0.0-0.19 % Sodium Level 138 136-145 mmol/L Potassium Level 4.6 3.5-5.1 mmol/L Chloride Level 103 101-111 mmol/L Carbon Dioxide Level 28 21-32 mmol/L Blood Urea Nitrogen 24 H 7-18 mg/dL Creatinine 1.2 0.5-1.3 mg/dL Glomerular Filtration Rate Calc 58 >90 mL/min Random Glucose 96 70-105 mg/dL Total Calcium 9.2 8.5-10.1 mg/dL Magnesium Level 1.90 1.80-2.40 mg/dL Total Creatine Kinase 118 21-232 U/L B-Type Natriuretic Peptide 118 H 0-100 pg/mL DIAGNOSTICS / RADIOLOGY: PATIENT: TITI MARCANO JR MR#: [id number] : 1935 SEX: M AGE: 89 LOCATION: ED ORDER STATUS: REG REPORT#: [id number] SERVICE REASON: cp ORDERING PHYSICIAN: AIMEE MADRID MD PROCEDURE: CXR1VW - CHEST 1VW EXAM: CR Chest, 1 View. CLINICAL HISTORY: cp COMPARISON: Radiograph dated January 19, 2024 FINDINGS: LUNGS: There is no mass, infiltrate, or acute pulmonary abnormality. Mild bibasilar atelectasis. PLEURAL SPACES: No evidence of pleural effusion or pneumothorax. MEDIASTINUM: AICD leads overlie the right atrium and right ventricle. Cardiac size and mediastinal contours within normal limits. BONES: No acute osseous abnormality. IMPRESSION: 1. No acute cardiopulmonary findings. /[place] DICTATED BY: EDGARDO LOCK Jr., MD DATE: 09/22/241113 ELECTRONICALLY SIGNED BY: EDGARDO LOCK Jr., MD DATE: 09/22/241113 ASSESSMENT: Chest pain rule out ACS POA Chronic diastolic CHF POA Debility POA Dehydration POA Atrial fibrillation on Eliquis Hypothyroidism POA Parkinson's disease/dementia POA Hypertension POA BPH POA Hyperlipidemia POA Stage III renal disease POA Cardiac pacemaker status fraility POA PLAN: Will be admitted to [facility] with tele Chest pain rule out ACS Patient will be on continuous telemetry monitoring Patient currently is asymptomatic Troponin to be trended q.6 x 3 Nitro 0.4 mg sublingual p.r.n. for chest pain Cardiology has been consulted for recommendations and further evaluation Patient will be placed on heart healthy diet continue home dose Elliquis for anticoagulation started on atorvastatin 40 mg started on aspirin 81 mg daily Dehydration Patient is started on gentle hydration with 75 mL/hour NS Atrial fibrillation, cardiac pacemaker status, chronic diastolic CHF Patient had LVEF of 50-55% with undetermined diastolic dysfunction - (01/21/2024) Patient will be continued on Eliquis continue patient on metoprolol tartarate 25 mg BID Hypothyroidism, Parkinson's disease, hypertension, BPH, hyperlipidemia continue patients home med carbidopa/levodopa continue tamsulosin continue levothyroxine DVT prophylaxis with SCDs GI prophylaxis with famotidine 20 mg IV b.i.d. Further course of hospitalization depending on Cardiology recommendations ATTESTATION BY PHYSICIAN I have seen and examined the patient. I reviewed the documentation, medical decision making, and treatment plan as noted by the resident provider above. I agree with the findings and plan of care. Fernando Molina MD, KEERTI K MD Sep 22, 2024 12:38
[2024-09-22] MEDS ORDERED: SERT-438 PO (12:59)
[2024-09-22] MEDS ORDERED: DOCU100C33 PO (12:59)
[2024-09-22] MEDS ORDERED: QUET25TA36 PO (12:59)
[2024-09-22] MEDS ORDERED: SOLI10TA PO (12:59)
[2024-09-22] MEDS ORDERED: PoTASSium chloRIDE 20MEQ ER 20 MEQ ERTAB PO PRN (13:00)
[2024-09-22] MEDS ORDERED: MAGNESIUM 2GM PREMIX 50ML 50 ML IV PRN (13:00)
[2024-09-22] MEDS ORDERED: PoTASSium chl 10% ELIXIR 20MEQ 20 MEQ/15 ML UDCUP PO PRN (13:00)
--- NOTE | 2024-09-22 14:10 | CONS ---
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 The symptoms began spontaneously, and without provocation. The pain was located in the midthoracic cavity and was described as sharp in quality, 5/10 in intensity, and non radiating. The symptoms were not exacerbated by anything, lasted approximately 45 minutes, and slowly resolve without any specific treatment. The patient denied any associated symptoms including headache, dizziness, syncope, palpitations, shortness or breath, PND, orthopnea, abdominal pain, nausea, vomiting, or weight gain. The duration of symptoms prompted the patient to come to the hospital further evaluation and treatment. PMH: Listed above PSH: Listed above FH: Significant for CAD, HTN, and DMII. SH: Denies alcohol, tobacco, or illicit drug use. Medications: Nuplazid 34 mg daily, sertraline 25 mg daily, quetiapine 25 mg q.h.s., omeprazole 20 mg daily, solifenacin succinate 10 mg daily, ropinirole 0 .25 mg qid, terazosin 5 mg q.h.s., metoprolol tartrate 25 mg b.i.d., atorvastatin 10 mg daily, carbidopa levodopa 25/100mg 2 tablets TID, levothyroxine 25mcg daily, Eliquis 5 mg BID Allergies: Coded Allergies: codeine (Unverified Allergy, Unknown, 03/13/19) meperidine (Verified Allergy, Unknown, 11/15/15) Review of systems: General: Denies fever or chills HEENT: Denies changes in vision, earache or sore throat Neck: Denies pain or stiffness Cardio: As per the HPI Pulm: Denies SOB, coughing or wheezing GI: Denies abdominal pain, nausea, vomiting, diarrhea, or constipation. MSK: Denies muscle or back pain. Heme: Denies anemia, easy bruising, or bleeding. Neuro: Denies headache, dizziness, or syncope. Psych: Denies anxiety, depression, or suicide ideations. Physical Exam: Vital Signs Date Time Temp Pulse Resp B/P (MAP) Pulse Ox O2 Delivery O2 Flow Rate FiO2 09/22/24 10:50 98.2 71 22 144/98 98 Room Air* 0 21 General: Alert and oriented x 3. Flat affect. NAD HEENT: NC/AT. Oral mucosa is moist. Neck: No masses, JVD, or carotid bruits Lungs: NRD. SCM. B/L CTA. No wheezing, rales or rhonchi. Cardio: Rate @ 71bpm. Normal S1 and S2. +S4. PMI was not displaced. Abdomen: Soft. NT. ND. Normal active bowel sounds x 4 quadrants. Extremities: No edema, clubbing or cyanosis. +2 pulses noted throughout. Neuro: CN II-XII were grossly intact. No focal deficits. Labs: Laboratory Tests Test 09/22/24 09:41 09/22/24 10:06 09/22/24 11:17 Range/Units White Blood Count 9.8 4.8-10.8 K/uL Red Blood Count 4.42 L 4.50-6.20 MIL/uL Hemoglobin 14.0 14.0-18.0 g/dL Hematocrit 42.1 42-54 % Mean Corpuscular Volume 95.2 79-99 fL Mean Corpuscular Hemoglobin 31.7 27.0-33.0 pg Mean Corpuscular Hemoglobin Concent 33.3 32.0-36.0 g/dL Red Cell Distribution Width 13.0 11.0-15.5 % Platelet Count 198 130-400 K/uL Mean Platelet Volume 9.4 7.5-10.5 fL Immature Granulocyte % (Auto) 0.5 0-1 % Neutrophils (%) (Auto) 74.1 40.0-77.0 % Lymphocytes (%) (Auto) 13.5 L 21.0-51.0 % Monocytes (%) (Auto) 9.3 3.0-13.0 % Eosinophils (%) (Auto) 2.1 0.0-8.0 % Basophils (%) (Auto) 0.5 0.0-5.0 % Neutrophils # (Auto) 7.2 1.8-7.7 K/uL Lymphocytes # (Auto) 1.3 1.0-4.8 K/uL Monocytes # (Auto) 0.9 0.1-1.0 K/uL Eosinophils # (Auto) 0.21 0.00-0.70 K/uL Basophils # (Auto) 0.05 0.00-0.20 K/uL Absolute Immature Granulocyte (auto 0.05 0-1 K/uL Nucleated Red Blood Cells 0.0 0.0-0.19 % Sodium Level 138 136-145 mmol/L Potassium Level 4.6 3.5-5.1 mmol/L Chloride Level 103 101-111 mmol/L Carbon Dioxide Level 28 21-32 mmol/L Blood Urea Nitrogen 24 H 7-18 mg/dL Creatinine 1.2 0.5-1.3 mg/dL Glomerular Filtration Rate Calc 58 >90 mL/min Random Glucose 96 70-105 mg/dL Hemoglobin A1c 5.9 4.0-6.0 % Estimated Average Glucose (eAG) 123 70-126 mg/dL Total Calcium 9.2 8.5-10.1 mg/dL Magnesium Level 1.90 1.80-2.40 mg/dL Total Creatine Kinase 118 21-232 U/L Troponin I High Sensitivity 16 14 4-75 ng/L B-Type Natriuretic Peptide 118 H 0-100 pg/mL Urine Color LIGHT-YELLOW YELLOW Urine Appearance CLEAR CLEAR Urine pH 6.5 5.0-8.0 Urine Specific [place] 1.008 1.001-1.031 Urine Protein NEGATIVE NEGATIVE mg/dL Urine Glucose (UA) NEGATIVE NEGATIVE mg/dL Urine Ketones NEGATIVE NEGATIVE mg/dL Urine Occult Blood LARGE H NEGATIVE Urine Nitrate NEGATIVE NEGATIVE Urine Bilirubin NEGATIVE NEGATIVE mg/dL Urine Urobilinogen 0.2 0.2-1.0 mg/dL Urine Leukocyte Esterase NEGATIVE NEGATIVE Kana/uL Urine RBC 51-100 H 0-1 /HPF Urine WBC 0-1 0-1 /HPF Urine Bacteria None None Seen /HPF Prothrombin Time 11.1 9.6-11.6 SEC Prothromb Time International Ratio 1.05 0.85-1.15 Activated Partial Thromboplast Time 27.9 26.3-35.5 SEC Phosphorus Level 2.6 2.5-4.9 mg/dL Vitamin B12 Level 517 193-986 pg/mL Folic Acid (LAB) > 20.00 H 2-20 ng/mL Procalcitonin < 0.05 L 0.05-0.5 ng/mL Thyroid Stimulating Hormone (TSH) 3.46 0.36-3.74 uIU/mL ECG 09/22/2024: Sinus rhythm. Left bundle branch block. Heart rate 66 beats per minute. Assessment: 1. Chest pain 2. Paroxysmal atrial fibrillation, on anticoagulation with the apixaban 3. 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 Hypothyroidism 5. HLP 6. Advanced Parkinson's disease Plan: 1. Chest pain -stable -ECG 09/22/2024: Sinus rhythm. Left bundle branch block. Heart rate 66 beats per minute. -laboratory data-high sensitivity troponin I: 16 > 14 -the patient presents with chest pain, that began this morning, at 7:00 a.m.. The symptoms began spontaneously and without provocation. The pain was described as sharp in quality, 5/10 intensity, nonradiating. The symptoms lasted for 45 minutes and resolved without any specific treatment. -the patient's symptoms are atypical, and thus far ACS has been ruled out. The patient has multiple cardiac risk factors thus CAD remains in our differential list, as a result we will refer him for a Lexiscan stress test. Other differentials include musculoskeletal chest pain, and GERD/gastritis. -we will await the results of the above-mentioned study before recommending further treatment. In the meantime he will continue on his home regimen of metoprolol tartrate 25 mg BID, atorvastatin 10 mg daily and nitroglycerin 0.4 mg sl prn chest pain 2. Paroxysmal atrial fibrillation -subsequently: Dilated atria -currently stable, asymptomatic, and in the sinus rhythm -continue metoprolol tartrate 25 mg BID and Eliquis 5 mg BID Thank you for this interesting consult and allowing us to participate in the care of your patient. Further recommendations to follow. EDISON TITUS MD Sep 22, 2024 14:10
[2024-09-22] MEDS: ASPIRIN 81MG CHEW TAB PO SCH (14:17)
[2024-09-22] MEDS: CARBIDOPA-LEVODOPA 25-100 TAB PO SCH (14:17)
[2024-09-22] MEDS: 0.9%NACL 1000ML 1,000 ML IV SCH (14:18)
[2024-09-22 15:32] VITALS: BP 166/99; PULSE 82; RESP 18; TEMP 98.1
--- NOTE | 2024-09-22 15:33 | NUR ---
GAVE REPORT TO ZEESHAN LOO. PATIENT WAS ESCORTED VIA ER BED,
--- NOTE | 2024-09-22 15:43 | NUR ---
Arrival on Unit Patient arrived on unit and was transferred from the ER stretcher to the bed. Patient was oriented to the room and the call light. Patient's spouse, Aaliyah, at bedside. Admission questions and assessment competed. Patient left in no distress.l
[2024-09-22 15:45] VITALS: BP 168/94; PULSE 70; RESP 17; TEMP 97.8; O2SAT 94
[2024-09-22 20:00] VITALS: BP 188/90; PULSE 75; RESP 24; TEMP 97.6; O2SAT 96
[2024-09-22 20:16] VITALS: BP 154/80; PULSE 68
--- NOTE | 2024-09-22 21:20 | NUR ---
Pt. refusing to take his medications @ this time.
[2024-09-22] MEDS: FAMOTIDINE 20MG VIAL IV SCH (21:29)
[2024-09-23 04:00] VITALS: BP 168/93; PULSE 67; RESP 24; TEMP 98.3
--- NOTE | 2024-09-23 04:20 | NUR ---
Pt. being combative & impulsive @ this time.
--- NOTE | 2024-09-23 04:26 | NUR ---
Orders for Haldol 5 Mg. I.M. X1 received @ this time; ordered per David Leonard.
[2024-09-23] MEDS: HALOPERIDOL INJ 5 MG/ML VIAL IM ONE (04:40)
[2024-09-23 07:40] VITALS: BP 156/71; PULSE 78; RESP 16; TEMP 97.6
--- NOTE | 2024-09-23 08:35 | PN ---
[facility] Cardiology Progress Note Cardiology progress note dictated for Joycelyn Tilley MD Date of service 09/23/2024 Problem list: 1. Chest pain (TI 16,14,16) 2. Paroxysmal atrial fibrillation, on anticoagulation with the apixaban 3. 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 Hypothyroidism 5. HLP 6. Advanced Parkinson's disease Review of blood work: Basic metabolic panel sodium 138, potassium 4.6, BUN of 24 and a creatinine of 58. Magnesium is 1.90 troponin high sensitivity 16, 14, 16. CBC with white blood cells 9.8, hemoglobin of 14, hematocrit of 42.1 and platelets of 188 Current medications: Seroquel 25 mg daily, levothyroxine 25 mcg daily, Eliquis 5 mg p.o. b.i.d., metoprolol tartrate 25 mg p.o. b.i.d., atorvastatin 40 mg at HS, aspirin 81 mg daily. Assessment/plan: 89-year-old male presented with complaints of chest pain that lasted approximately 45 minutes and resolved on its own. He has a history of paroxysmal atrial fibrillation on chronic anticoagulation, permanent pacemaker implantation, Parkinson's disease. Cardiac enzymes were cycled on admission and have been negative. Chest x-ray demonstrated no acute cardiopulmonary findings. Blood pressure this morning 156/71 with a heart rate of 78 beats per minute and regular lungs are clear to auscultation no pedal edema noted. He is scheduled for Lexiscan Cardiolite this morning but has a one-to-one sitter currently. Per nurse at bedside he refused medication, was confused and aggressive overnight. This morning he is calm, oriented to name and date of . Spoke to nurse at bedside and is on the way. We will continue to monitor. Addendum: The patient had been confused during the night. He is oriented to person and place but not time. At this point he had refused medications and was aggressive overnight. I do not believe is a good candidate for stress testing at this time and we will cancel the Lexiscan Cardiolite stress. Given his age and symptoms we will plan on treating him empirically for angina. ATTESTATION BY PHYSICIAN I have seen and examined the patient. I reviewed the documentation, medical decision making, and treatment plan as noted by the mid-level provider above. I agree with the findings and plan of care. JOYCELYN TILLEY MD, [facility] Sep 23, 2024 08:35 JOYCELYN TILLEY MD Sep 23, 2024 09:00
[2024-09-23] MEDS: TERAZOSIN 5MG CAP PO SCH (09:00)
[2024-09-23] MEDS ORDERED: NITROGLYCERIN 0.4 MG SL TAB SL PRN (09:00)
[2024-09-23] MEDS ORDERED: REGADENOSON 0.4 MG/5 ML PF SYG IVP ONE (09:42)
[2024-09-23 12:00] VITALS: BP 139/65; PULSE 80; RESP 16; TEMP 98.4
--- NOTE | 2024-09-23 13:49 | NUR ---
DCP: INITIAL ASSESSMENT Patient lives with spouse, Aaliyah Mix. He has no home health but does have providers paid by his insurance, [facility] as per daughter. She stated that providers are there about 17 hours a week. She could not name of agency. Patient has rollator, wheelchair, shower chair and BPM at home. He needs help with ADLs and does not drive. Spouse and daughter help with transportation. PCP is Dr. Sandeep Lee. Pharmacy is [facility] in [place]. Patient is presently on a 1:1 observation due to being confused and fall risk. DCP is home as per daughter. Addendum: 09/23/24 at 1352 by HONORIO APPIAH Amended: Links added.
--- NOTE | 2024-09-23 13:50 | HMCSR ---
APPROVED REPORT Height: 5 ft 11in Weight: 169 lbs TEST INDICATIONS Chest Pain The imaging protocol used to acquire images was Rest Tc-99m/stress Tc-99m 1 day Consent: The procedure was explained and understood by the patient. Informerd consent was witnessed Christi Hargrove RN First, low dose rest was performed then high dose stress. RESTING DATA: The resting ekg shows: NSR Rest SPECT myocardial perfusion imaging was performed in supine position minutes following the intra venous injection of 10 mCi of Tc-99 Sestamibi. Time of rest injection: 08:20: Date: 09/23/2024 PHARMACOLOGIC STRESS: Pharmacologic stress test was performed by injecting regadenoson 0.4 mg IV push followed by the intra venous injection of 27 mCi of Tc-99 Sestamibi. Time of stress injection: 10:07: Date: 09/23/2024 Heart Rate at time of stress injection: 80 bpm. Gated Stress SPECT was performed 60 minutes after stress injection. The images were gated to evaluate regional wall motion and calculate left ventricular ejection fracti on. STRESS DETAILS Reason for Termination: Infusion complete Stress Symptoms: No chest pain or symptoms Max HR Achieved: 86 bpm % of APMHR Achieved: 76 Max Blood Pressure: 158/83 mmHg Stress ECG: NSR Arrhythmia: No. ST Change: No. Study quality was fair. Artifact: motion artifact, diaphragmatic artifact LEFT VENTRICLE Size: The left ventricular size is normal. Systolic Function:The left ventricular systolic function is normal. Wall Motion: No regional wall motion abnormalities noted. The left ventricular ejection fraction was calculated to be 68%.TID = . LV PERFUSION The rest and stress images show normal perfusion. No reversible ischemia or areas of infarct were se en. No obvious TID. RV Size/Shape The right ventricle was not well visualized. IMPRESSION Stress ECG Summary: Nondiagnostic Conclusion Normal Lexiscan stress test. The rest and stress images show normal perfusion. No reversible ischemia or areas of infarct were se en. No obvious TID. The left ventricular size is normal. No regional wall motion abnormalities noted. The left ventricula r systolic function is normal. Post-stress LVEF was calculated to be 68%. Stress ECG Summary: Nondiagnostic Study indicates a low risk for cardiovascular events.
--- NOTE | 2024-09-23 14:44 | DS ---
Discharge Summary Hospital Course Summary: This is an 89-year-old male with past medical history of CAD, hypertension, hyperlipidemia, urinary incontinence, Parkinson's disease, BPH atrial fibrillation on Eliquis, pacemaker status who presented to the ED by EMS for complaints with episode of severe chest pain which resolved after 30 minutes and it was sharp in nature and constant and is not radiating. His EKG showed ID prolongation with sinus rhythm and heart rate of 66. Seen and examined patient in the ED he was awake,alert and coherent,following commands and moving all extremities. Patient denied any loss of consciousness,headache,visual disturbance,nausea,vomiting,chest pain,palpitation ,fever,chills,cough and shortness of breath. His Vital signs were stable. His Labs showed BNP 118, troponin 16, BUN 24 creatinine 1.2, GFR 58, glucose 96. Urinalysis negative except for blood, nurse informed that it is due to traumatic cause. He was admitted further evaluation for chest pain to rule out ACS. The patient undergo stress and the findings were unremarkable. He remained hemodynamically stable throughout hospitalization with no recurrence of chest pain or neurological symptoms. He is being discharged in stable condition with instructions to continue his home medications, follow up with cardiology and primary care. Chief Architect(s): Cardiology: JOYCELYN PULIDO MD Procedure(s): [place] [address] [id number] IMAGING REPORT Signed PATIENT: TITI MARCANO JR MR#: [id number] : 1935 SEX: M AGE: 89 LOCATION: [facility] ORDER 141 STATUS: ADM IN REPORT#: [id number] SERVICE 1410 REASON: chest pain ORDERING PHYSICIAN: JOYCELYN PULIDO MD PROCEDURE: CARD SIENNA - NM LEXISCAN CARDIOLITE APPROVED REPORT Height: 5 ft 11in Weight: 169 lbs TEST INDICATIONS Chest Pain The imaging protocol used to acquire images was Rest Tc-99m/stress Tc-99m 1 day Consent: The procedure was explained and understood by the patient. Informerd consent was witnessed by Nichelle Hargrove RN First, low dose rest was performed then high dose stress. RESTING DATA: The resting ekg shows: NSR Rest SPECT myocardial perfusion imaging was performed in supine position minutes following the intravenous injection of 10 mCi of Tc-99 Sestamibi. Time of rest injection: 08:20: Date: 09/23/2024 PHARMACOLOGIC STRESS: Pharmacologic stress test was performed by injecting regadenoson 0.4 mg IV push followed by the intravenous injection of 27 mCi of Tc-99 Sestamibi. Time of stress injection: 10:07: Date: 09/23/2024 Heart Rate at time of stress injection: 80 bpm. Gated Stress SPECT was performed 60 minutes after stress injection. The images were gated to evaluate regional wall motion and calculate left ventricular ejection fraction. STRESS DETAILS Reason for Termination: Infusion complete Stress Symptoms: No chest pain or symptoms Max HR Achieved: 86 bpm % of APMHR Achieved: 76 Max Blood Pressure: 158/83 mmHg Stress ECG: NSR Arrhythmia: No. ST Change: No. Study quality was fair. Artifact: motion artifact, diaphragmatic artifact LEFT VENTRICLE Size: The left ventricular size is normal. Systolic Function:The left ventricular systolic function is normal. Wall Motion: No regional wall motion abnormalities noted. The left ventricular ejection fraction was calculated to be 68%.TID = . LV PERFUSION The rest and stress images show normal perfusion. No reversible ischemia or areas of infarct were seen. No obvious TID. RV Size/Shape The right ventricle was not well visualized. IMPRESSION Stress ECG Summary: Nondiagnostic Conclusion Normal Lexiscan stress test. The rest and stress images show normal perfusion. No reversible ischemia or areas of infarct were seen. No obvious TID. The left ventricular size is normal. No regional wall motion abnormalities noted. The left ventricular systolic function is normal. Post-stress LVEF was calculated to be 68%. Stress ECG Summary: Nondiagnostic Study indicates a low risk for cardiovascular events. DICTATED BY: JOYCELYN PULIDO MD DATE: 09/23/24 0928 ELECTRONICALLY SIGNED BY: JOYCELYN PULIDO MD DATE: 09/23/[id number] [id number] IMAGING REPORT Signed PATIENT: TITI MARCANO JR MR#: [id number] : 1935 SEX: M AGE: 89 LOCATION: [facility] ORDER 6 STATUS: REG ER REPORT#: [id number] SERVICE REASON: cp ORDERING PHYSICIAN: AIMEE MADRID MD PROCEDURE: CXR1VW - CHEST 1VW EXAM: CR Chest, 1 View. CLINICAL HISTORY: cp COMPARISON: Radiograph dated January 19, 2024 FINDINGS: LUNGS: There is no mass, infiltrate, or acute pulmonary abnormality. Mild bibasilar atelectasis. PLEURAL SPACES: No evidence of pleural effusion or pneumothorax. MEDIASTINUM: AICD leads overlie the right atrium and right ventricle. Cardiac size and mediastinal contours within normal limits. BONES: No acute osseous abnormality. IMPRESSION: 1. No acute cardiopulmonary findings. /Amber DICTATED BY: EDGARDO LOCK Jr., MD DATE: 09/22/241113 ELECTRONICALLY SIGNED BY: EDGARDO LOCK Jr., MD DATE: 09/22/241113 Assessment/Plan: ASSESSMENT: Chest pain due to Costochondritis, ACS ruled out Debility POA Dehydration POA Atrial fibrillation POA Hypothyroidism POA Parkinson's disease/dementia POA Hypertension POA BPH POA Hyperlipidemia POA Stage III renal disease POA Cardiac pacemaker status Fraility POA Discharge Instructions: Follow up with PCP and Cardiology as recommended Call 911 or ED for new or worsening chest pain, palpitations, dizziness, shortness of breath Low sodium diet and heart healthy diet Monitor Blood pressure closely Home Medications: Reported Medications Sertraline HCl (Sertraline HCl) 25 Mg Tablet, 1 TAB PO DAILY for 30 Days, #30 TAB 0 Refills 09/22/24 Docusate Sodium (Docusate Sodium) 100 Mg Capsule, 1 CAP PO TID for constipation for 7 Days, #14 CAP 0 Refills 09/22/24 Solifenacin Succinate (Vesicare) 10 Mg Tablet, 1 TAB PO DAILY for 30 Days, #30 TAB 0 Refills 09/22/24 Quetiapine Fumarate (Quetiapine Fumarate) 25 Mg Tablet, 1 TAB PO ACLUNCH for 30 Days, #30 TAB 0 Refills TAKE AT 4 IN THE AFTERNOON. 09/22/24 Terazosin HCl (Terazosin HCl) 5 Mg Capsule, 1 CAP PO DAILY for 30 Days, #30 CAP 0 Refills 01/19/24 Metoprolol Tartrate (Metoprolol Tartrate) 25 Mg Tablet, 1 TAB PO BID for 30 Days, #60 TAB 0 Refills 01/19/24 Carbidopa/Levodopa (Carbidopa-Levo ER 25-100 Tab) 25 Mg-100 Mg Tablet.er, 2 TAB PO TID for 30 Days, #60 TAB 0 Refills 01/19/24 Ropinirole HCl (Ropinirole HCl) 0.25 Mg Tablet, 0.25 MG PO QID, TAB 01/19/24 Omeprazole (Omeprazole) 20 Mg Capsule.dr, 1 CAP PO DAILY for 30 Days, #30 CAP 0 Refills 01/19/24 Levothyroxine Sodium (Levothyroxine Sodium) 25 Mcg Tablet, 25 TAB PO ACBKFST for 30 Days, #30 TAB 0 Refills 01/19/24 Atorvastatin Calcium (LIPITOR) 10 Mg Tab, 1 TAB PO HS for 30 Days, #30 TAB 0 Refills 01/19/24 Apixaban (Eliquis) 5 Mg Tablet, 1 TAB PO BID for 30 Days, #60 TAB 0 Refills 01/19/24 Discontinued Reported Medications Acetaminophen (Acetaminophen Extra Strength) 500 Mg Tablet, 1-2 TAB PO Q6HPRN PRN for pain for 1 Day, #20 TAB 0 Refills 01/19/24 Discontinued Scripts Acetaminophen (Tylenol) 500 Mg Tab, 1 TAB PO Q6HPRN PRN for pain or fever for 5 Days, #30 TAB 0 Refills Prov:AIMEE MADRID MD 01/10/24 Cephalexin Monohydrate (Keflex) 500 Mg Cap, 1 CAP PO TID for 10 Days, #30 CAP 0 Refills Prov:AIMEE MADRID MD 01/10/24 Time spent arranging discharge: 31-60 minutes ATTESTATION BY PHYSICIAN I have seen and examined the patient. I reviewed the documentation, medical decision making, and treatment plan as noted by the resident provider above. I agree with the findings and plan of care. Fernando Molina MD [facility],IRENE BARAJAS Sep 23, 2024 14:44
== END 2024-09-23 16:55 | disposition home or self-care (01) ==
LOC: EDH 09:29 → EDHIP 11:43 → INTOOBSV 11:43 → 3AH 15:45
PROVIDERS: ADMIT Internal Medicine; ATTEND Internal Medicine
DX: R07.89 Other chest pain (principal); M94.0 Chondrocostal junction syndrome [Tietze]; I48.0 Paroxysmal atrial fibrillation; E86.0 Dehydration; E03.9 Hypothyroidism, unspecified; I11.0 Hypertensive heart disease with heart failure; I50.32 Chronic diastolic (congestive) heart failure; G20.A1 Parkinson's disease without dyskinesia, without mention of fluctuations; F02.80 Dementia in other diseases classified elsewhere, unspecified severity, without behavioral disturbance, psychotic disturbance, mood disturbance, and anxiety; I25.10 Atherosclerotic heart disease of native coronary artery without angina pectoris; N40.0 Benign prostatic hyperplasia without lower urinary tract symptoms; E78.5 Hyperlipidemia, unspecified; N28.9 Disorder of kidney and ureter, unspecified; R54 Age-related physical debility; Z79.899 Other long term (current) drug therapy; Z95.0 Presence of cardiac pacemaker; Z90.49 Acquired absence of other specified parts of digestive tract; Z79.82 Long term (current) use of aspirin; Z88.5 Allergy status to narcotic agent
CPT/HCPCS: 96374; 96375; 93005; 96361 ×3; 99285; 83036; 84443; 82550; 83735; 84100; 84484 ×3; 80048; 83880; 85025; 85610; 85730; 82607; 82746; 81001; 36415; 71045; 93017; 78452; 84145; 96372; J3490; J7030; J0360; A9500 ×2; G0378 ×8; J1630; J2785